=== PATIENT | female | born 1970 | race Caucasian/White ===

== ENCOUNTER 2017-03-30 10:24 | Day surgery (SDC) | payer BC ==
[2017-03-29 11:30] VITALS: BMI 21.2
[2017-03-30] MEDS ORDERED: Oxymetazoline HCl 0.05% ( 15 ML ) ONE ×3 (10:55→16:42)
[2017-03-30] MEDS ORDERED: Midazolam HCl 2 mg/2 ml Vial ONE ×2 (12:22→13:33)
[2017-03-30] MEDS ORDERED: Bacitracin Zinc Ointment 30 gm TUBE ONE (13:28)
[2017-03-30] MEDS ORDERED: Lidocaine 1% w/Epinephrine 1:200K 30 ML VIAL ONE (13:28)
[2017-03-30] MEDS ORDERED: Fentanyl 100 MCG/2 ML VIAL ONE ×3 (13:33→15:00)
[2017-03-30] MEDS ORDERED: Hydrocodone-Acetamin 15 ML UDCUP ONE (15:38)
[2017-03-30] MEDS ORDERED: Ondansetron ODT 4 MG TAB ONE (17:31)
[2017-03-30] MEDS ORDERED: Promethazine HCl 25 MG/ML VIAL ONE (19:26)
--- NOTE | 2017-03-30 21:38 | OP ---
DATE OF PROCEDURE: 03/30/2017 PREOPERATIVE DIAGNOSES: 1. Chronic rhinosinusitis. 2. Nasal septal deviation. 3. Bilateral inferior turbinate hypertrophy. 4. Nasal obstruction. POSTOPERATIVE DIAGNOSES: 1. Chronic rhinosinusitis. 2. Nasal septal deviation. 3. Bilateral inferior turbinate hypertrophy. 4. Nasal obstruction. PROCEDURES: 1. Bilateral endoscopic sinus surgery, total ethmoidectomies. 2. Bilateral endoscopic sinus surgery, maxillary antrostomies. 3. Bilateral endoscopic sinus surgery, frontal sinusotomies. 4. Nasal septoplasty. 5. Bilateral inferior turbinate submucosal resection. SURGEON: Parvez Drake M.D. ESTIMATED BLOOD LOSS: 0 mL COMPLICATIONS: None. ANESTHESIA: GETA. PROCEDURE IN DETAIL: Patient was taken to the operating room and placed supine on the table. Genera l endotracheal anesthesia was obtained by the Anesthesia staff. Tube was secured in the left lower l ip. Patient was then placed in the beach chair position, and Afrin pledgets were placed in the nasal cavity. Injections of 1% lidocaine with 1:100,000 epinephrine were made into the nasal septum as we ll as the inferior turbinates. Patient was then prepped and draped in standard surgical fashion for nasal surgery. Following this, the Afrin pledgets were removed. A Curry incision was made on the left nasal septum. Submucoperichondrial dissection was performed. The deviated portions of the sept um included portions of the cartilage and the bony septum. These isolated areas were removed using t hree cutting rongeurs. There was noted to be a large dorsal and caudal strut, left intact for suppor t of the nose. The mucoperichondrial flaps were then reapproximated using a 4-0 gut stitch. Any str aight pieces of cartilage were crushed prior to this and placed between the mucoperichondrial flaps. Following this, the inferior turbinates were then punctured with a submucosal coblation wand, and contreras bmucosal coblations were performed of multiple areas of the inferior portion of the anterior inferior turbinate. Please note that the submucosal microdebrider was used to submucosally resect the anterior and inferi or portions of the inferior turbinates bilaterally. Following this, the inferior turbinates were gen tly outfractured. A 0 degree scope was advanced to the middle meatus and middle turbinates were gent ly medialized using a Bonsall elevator. The uncinate process was then identified bilaterally and was a nteriorly fractured using the ball ended probe. The uncinate was then removed bilaterally using the microdebrider and upbiting Westley forceps. Following this, the maxillary sinus ostia was gently id entified with the ball-ended probe and was then widened using the straight Blakesley forceps and the microdebrider bilaterally. Following this, the ethmoidal bulla was punctured on its medial and infer ior aspect and was removed and following this, the grand lamella was identified and was punctured int o the posterior ethmoidal cells using the Flood tip suction. Following this, working from posterio r to anterior, the ethmoidal cells were opened using the straight microdebrider and curved microdebri jessica and upbiting Blakesley forceps. Following this, the 45-degree scope and the 40-degree curved delia rodebrider blade was used to further resect the frontal recess cells and the frontal sinus ostia bila terally. Following this, the nasal cavity was irrigated. MeroPacks were placed in the middle meatus . Loza splints were placed and secured.
== END 2017-03-30 19:55 | disposition home or self-care (01) ==
LOC: SDC 10:24
PROVIDERS: ATTEND Otolaryngology Plastic Surgery within the Head & Neck
PROC: 09RM47Z Replacement of Nasal Septum with Autologous Tissue Substitute, Percutaneous Endoscopic Approach (ICD-10-PCS; principal; 2017-03-30)
PROC: 09BS8ZZ Excision of Right Frontal Sinus, Via Natural or Artificial Opening Endoscopic (ICD-10-PCS; principal; 2017-03-30)
PROC: 09TV8ZZ Resection of Left Ethmoid Sinus, Via Natural or Artificial Opening Endoscopic (ICD-10-PCS; principal; 2017-03-30)
PROC: 099Q8ZZ Drainage of Right Maxillary Sinus, Via Natural or Artificial Opening Endoscopic (ICD-10-PCS; principal; 2017-03-30)
PROC: 09TL8ZZ Resection of Nasal Turbinate, Via Natural or Artificial Opening Endoscopic (ICD-10-PCS; principal; 2017-03-30)
PROC: 09TU8ZZ Resection of Right Ethmoid Sinus, Via Natural or Artificial Opening Endoscopic (ICD-10-PCS; principal; 2017-03-30)
PROC: 099R8ZZ Drainage of Left Maxillary Sinus, Via Natural or Artificial Opening Endoscopic (ICD-10-PCS; principal; 2017-03-30)
PROC: 09BT8ZZ Excision of Left Frontal Sinus, Via Natural or Artificial Opening Endoscopic (ICD-10-PCS; principal; 2017-03-30)
DX: J32.9 Chronic sinusitis, unspecified (principal); J34.2 Deviated nasal septum; J34.3 Hypertrophy of nasal turbinates; Z79.51 Long term (current) use of inhaled steroids; Z98.891 History of uterine scar from previous surgery; Z98.890 Other specified postprocedural states
CPT/HCPCS: 36415; 85014; 96374; J2250; J2550; J3010; Q0162

== ENCOUNTER 2020-04-11 14:16 | Outpatient (CLI) | payer BC ==
[2020-04-11 16:48] LABS: Hemoglobin 12.4 g/dL (12.0-15.5)
[2020-04-11 17:14] LABS: BHCG - Serum Negative (NEGATIVE); Pregs Control Background? CLEAR/WHITE (CLR/WHITE); Pregs Control Bar Appear? YES (CONTROL BAR)
[2020-04-12 02:22] LABS: SARS-CoV-2 PCR by NAA Not Detected (NotDetected)
== END 2020-04-11 14:17 | disposition home or self-care (01) ==
LOC: LABBT 14:16
PROVIDERS: ATTEND Otolaryngology Plastic Surgery within the Head & Neck
DX: Z01.818 Encounter for other preprocedural examination (principal); J32.1 Chronic frontal sinusitis; J32.2 Chronic ethmoidal sinusitis; Z20.822 Contact with and (suspected) exposure to COVID-19
CPT/HCPCS: 84703; 85014; 85018; 87635; 93005; 93010; U0003; U0005

== ENCOUNTER 2020-04-16 06:15 | Day surgery (SDC) | payer BC ==
[2020-04-15 10:11] VITALS: BMI 20.9
[2020-04-16] MEDS ORDERED: EPINEPHrine 1 MG/ML AMP ONE (06:38)
[2020-04-16] MEDS ORDERED: AFRIN NASAL MIST 15 ML BOT ONE ×2 (06:38→06:58)
[2020-04-16] MEDS ORDERED: Lidocaine 1% w/Epinephrine 1:100K 20 ML VIAL ONE (06:38)
[2020-04-16] MEDS ORDERED: Bacitracin Zinc Ointment 30 gm TUBE ONE (06:38)
[2020-04-16] MEDS ORDERED: Fentanyl 100 MCG/2 ML VIAL ONE ×2 (07:01→08:54)
[2020-04-16] MEDS ORDERED: Dexmedetomidine 200 MCG/2 ML VIAL ONE (07:12)
[2020-04-16] MEDS ORDERED: Rocuronium Bromide 10 MG/ML (10ML VIAL) ONE (09:12)
[2020-04-16] MEDS ORDERED: PROPOFOL 200 MG/20 ML VIAL ONE (09:12)
[2020-04-16] MEDS ORDERED: Ondansetron PF 4 MG/2 ML Vial ONE (09:12)
[2020-04-16] MEDS ORDERED: Lidocaine 1% PF 5 ML VIAL ONE (09:12)
[2020-04-16] MEDS ORDERED: Glycopyrrolate 0.2 MG/ML 5 ML SYRINGE ONE (09:12)
[2020-04-16] MEDS ORDERED: Dexamethasone 20 MG/5 ML VIAL ONE (09:12)
[2020-04-16] MEDS ORDERED: Hydrocodone-Acetamin 15 ML UDCUP ONE (10:32)
== END 2020-04-16 11:16 | disposition home or self-care (01) ==
LOC: SDC 06:15
PROVIDERS: ATTEND Otolaryngology Plastic Surgery within the Head & Neck
PROC: 8E09XBZ Computer Assisted Procedure of Head and Neck Region (ICD-10-PCS; principal; 2020-04-16)
PROC: 09BT8ZZ Excision of Left Frontal Sinus, Via Natural or Artificial Opening Endoscopic (ICD-10-PCS; principal; 2020-04-16)
PROC: 09BV8ZZ Excision of Left Ethmoid Sinus, Via Natural or Artificial Opening Endoscopic (ICD-10-PCS; principal; 2020-04-16)
PROC: 09BS8ZZ Excision of Right Frontal Sinus, Via Natural or Artificial Opening Endoscopic (ICD-10-PCS; principal; 2020-04-16)
PROC: 09BU8ZZ Excision of Right Ethmoid Sinus, Via Natural or Artificial Opening Endoscopic (ICD-10-PCS; principal; 2020-04-16)
DX: J32.8 Other chronic sinusitis (principal); J33.8 Other polyp of sinus; J34.89 Other specified disorders of nose and nasal sinuses; D64.9 Anemia, unspecified; F41.9 Anxiety disorder, unspecified; Z79.51 Long term (current) use of inhaled steroids
CPT/HCPCS: 88304; C2625; J0171; J1100; J2405; J2704; J3010